=== PATIENT | female | born 1990 | race Asian ===

== ENCOUNTER 2020-01-08 21:19 | Emergency (ER) | payer OTHER ==
[2020-01-08 21:55] LABS: Urine Appearance Cloudy; Urine Bilirubin Negative (Negative); Urine Blood Negative (Negative); Urine Color Yellow; Urine Glucose Negative (Negative); Urine Ketones Negative (Negative); Urine Nitrite Negative (Negative); Urine Protein Negative (Negative); Urine Specific Gravity 1.012 (1.010-1.030); Urine Urobilinogen Negative (Negative)
[2020-01-08 22:10] LABS: Urine Bacteria Absent (Absent); Urine Red Blood Cell 1+(3-5/hpf) (Absent); Urine Squamous Epithelial Cell Present (Absent); Urine White Blood Cell 2+(11-20/hpf) (Absent)
[2020-01-08] MEDS ORDERED: NS 0.9% 1000 ML** 1,000 ML IV ONE (22:22)
--- NOTE | 2020-01-08 22:39 | ED ---
Abdominal Pain/Female - HPI Summary HPI Summary: 29 year old F who is 34 weeks arriving via private car with male director treasurer complains of constant left sided back pain radiating to left side of back starting today 01/08/2020. A0. Patient reports vomiting x2 and headache today. She states she has been able to drink fluids. Patient denies fever, vaginal discharge, vaginal bleeding, dysuria. Patient states she had similar symptoms 2 days ago with diarrhea, and felt better yesterday, but symptoms returned today. No diarrhea today. She endorses movement. Symptoms rated 7 /10 in severity. Symptoms aggravated by nothing. Symptoms alleviated by nothing. Medications reviewed. Takes folic acid and Flonase. 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 No hx tobacco, drugs, alcohol. FHx breast cancer mother, blood clot in spine father. - History of Current Complaint Chief Complaint: EDAbdPain Stated Complaint: 34 WKS PREG/BACK AND ABD PAIN/VOMITING PER PT Time Seen by Provider: 01/08/20 22:22 Hx Obtained From: Patient Hx Last Menstrual Period: 34 weeks Onset/Duration: Lasting Hours, Still Present Timing: Constant Severity Currently: Moderate Pain Intensity: 7 Pain Scale Used: 0-10 Numeric Location: Discrete At: LUQ, Discrete At: LLQ Radiates: Yes Radiates to: Back - left Aggravating Factor(s): Nothing Alleviating Factor(s): Nothing Associated Signs and Symptoms: Positive: Negative - diarrhea, fever, vaginal discharge, vaginal bleeding, dysuria, Vomiting, Other: - headache Allergies/Adverse Reactions: Allergies Allergy/AdvReac Type Severity Reaction Status Date / Time No Known Allergies Allergy Verified 01/08/20 22:06 Home Medications: Home Medications Flonase NASAL SPRAY 50MCG* 2 spray INH DAILY 01/08/20 [History Confirmed ] Folic Acid 400 mcg PO DAILY 01/08/20 [History Confirmed 01/08/20] PMH/Surg Hx/FS Hx/Imm Hx Endocrine/Hematology History: Denies: Hx Diabetes Cardiovascular History: Denies: Hx Hypertension Sensory History: Reports: Hx Contacts or Glasses Opthamlomology History: Reports: Hx Contacts or Glasses - Surgical History Surgery Procedure, Year, and Place: surgery after spleen rupture s/p trauma more than 10 years ago as 2019 - Immunization History Date of Influenza Vaccine: Fall 2018 Infectious Disease History: No Infectious Disease History: Denies: Traveled Outside the [place] in Last 30 Days - Family History Family History: breast cancer mother. blood clot in spine father - Social History Alcohol Use: None Hx Substance Use: No Substance Use Type: Reports: None Hx Tobacco Use: No Smoking Status (MU): Never Smoked Tobacco Review of Systems - ROS Summary Review of Systems Summary: Home Medications Medication Instructions Recorded Confirmed Type Flonase NASAL SPRAY 50MCG* 2 spray INH DAILY 01/08/20 01/08/20 History Folic Acid 400 mcg PO DAILY 01/08/20 01/08/20 History Negative: Fever Positive: Abdominal Pain, Vomiting Genitourinary: Negative - vaginal bleeding Negative: dysuria, discharge Positive: Headache All Other Systems Reviewed And Are Negative: Yes Physical Exam - Summary Physical Exam Summary: General: Well-developed, Well-nourished FEMALE. No acute distress. HEENT: Normocephalic, Atraumatic. Eyes: Conjuctiva normal, PERRL. Oropharynx: Clear, mucous membranes moist, (-) exudates. Neck: Soft, FROM, (-) lymphadenopathy, (-) thyromegaly, (-) JVD. Cardiovascular: Normal sinus rhythm, (-) murmur. Lungs: Clear to auscultation bilaterally (-) wheezes, (-) rales, (-) rhonchi. Abdomen: Soft, non-tender, non-distended, (-) organomegaly, normal bowel sounds. The uterus is 2-cm before the xiphoid. Back: (-) CVA tenderness Extremities: No edema. Skin: Warm, dry, (-) rash. Neuro: Alert and oriented x3, moves all extremities equally. No ataxia. No gait disturbance. No sensory deficit. Normal strength, normal sensation. Psychiatric: Mood normal, affect normal. Triage Information Reviewed: Yes Vital Signs On Initial Exam: Initial Vitals Temp Pulse Resp BP Pulse Ox 98.1 F 86 18 122/73 98 01/08/20 21:22 01/08/20 21:22 01/08/20 21:22 01/08/20 21:22 01/08/20 21:22 Vital Signs Reviewed: Yes Procedures - Sedation Patient Received Moderate/Deep Sedation with Procedure: No Diagnostics - Vital Signs Vital Signs Temp Pulse Resp BP Pulse Ox 01/08/20 22:09 87 116/70 98 01/08/20 22:08 84 98 01/08/20 21:22 98.1 F 86 18 122/73 98 - Laboratory Lab Results: Lab Results 01/08/20 Range/Units 21:44 Urine Color Yellow Urine Appearance Cloudy Urine pH 7.0 (5-9) Ur Specific [place] 1.012 (1.010-1.030) Urine Protein Negative (Negative) Urine Ketones Negative (Negative) Urine Blood Negative (Negative) Urine Nitrate Negative (Negative) Urine Bilirubin Negative (Negative) Urine Urobilinogen Negative (Negative) Ur Leukocyte Esterase 2+ A (Negative) Urine WBC (Auto) 2+(11-20/hpf) A (Absent) Urine RBC (Auto) 1+(3-5/hpf) A (Absent) Ur Squamous Epith Cells Present A (Absent) Urine Bacteria Absent (Absent) Urine Glucose Negative (Negative) Result Diagrams: 01/08/20 22:44 01/08/20 22:44 Lab Statement: Any lab studies that have been ordered have been reviewed, and results considered in the medical decision making process. Re-Evaluation - Re-Evaluation First Eval Re-Evaluation Time: 00:21 Comment: OB nurse reports monitoring findings Second Eval Re-Evaluation Time: 00:27 Change: Improved Comment: I have discussed results with the patient and symptoms have resolved. Discussed symptoms that warrant immediate return to ED. Abdominal Pain Fem Course/Dx - Course Course Of Treatment: 29-year-old female, presents at 34+ weeks gestation with abdominal pain. She states she has left-sided abdominal pain and left back pain. Has not taken anything for it. Also describes vomiting twice today and a headache. She has been able to keep fluids down. She denies any fevers or chills. Said she had diarrhea 2 days ago. Thought she was feeling better yesterday. She states the pain is constant and not coming and going like contractions. Denies vaginal discharge or bleeding. patient states baby is moving well. physical exam the uterus is soft. Appropriate size for gestation. workup demonstrates a slightly elevated white count and decreased hemoglobin. Slightly decreased platelets. Urine has white cells but also has epithelial cells and no bacteria. if needed, treatment will be initiated after positive culture. heart monitoring was done. Patient had mild irregular contractions which were normal and consistent with her symptoms. Patient's symptoms consistent with gastroenteritis. as rest, since of clear fluids and to advance slowly as tolerated. Tylenol as needed. Follow-up with URINALYSIS TECHNICIAN. Follow up sooner for any worsening symptoms. - Diagnoses Provider Diagnoses: Gastroenteritis, , incidental Discharge ED - Sign-Out/Discharge Documenting (check all that apply): Patient Departure - Discharge Plan Condition: Stable Disposition: HOME Patient Education Materials: Gastroenteritis (ED) Referrals: [facility] [Outside] - 3 Days Additional Instructions: Follow up with [facility] in 3 days. Return to the Emergency Department for changing or worsening symptoms. - Billing Disposition and Condition Condition: STABLE Disposition: Home - Attestation Statements Document Initiated by Scribe: Yes Documenting Scribe: Gema Sanchez Provider For Whom Tamara is Documenting (Include Credential): Jonelle Anthony MD Scribe Attestation: Gema Albrecht, scribed for Jonelle Anthony MD on 01/09/20 at 0141. Scribe Documentation Reviewed: Yes Provider Attestation: The documentation as recorded by the Gema khalil accurately reflects the service I personally performed and the decisions made by Jonelle loya MD Status of Scribe Document: Viewed
[2020-01-08 22:57] LABS: ABS Lymphocytes 1.7 10^3/ul (1.0-4.8); ABS Monocytes 1.4 10^3/ul (0-0.8); ABS Neutrophils 13.5 10^3/ul (1.5-7.7); Eosinophil % 0.1 %; Hematocrit 33 % (35-47); Hemoglobin 11.1 g/dL (12.0-16.0); Mean Corpuscular HGB Conc 34 g/dL (31-36); Mean Corpuscular Hemoglobin 29 pg (27-31); Mean Corpuscular Volume 85 fL (80-97); Mean Platelet Volume 11.4 fL (7.4-10.4); Platelet Count 124 10^3/uL (150-450); Red Blood Count 3.82 10^6 /uL (3.70-4.87); Red Cell Distribution Width 15 % (10-15); White Blood Count 16.6 10^3/uL (3.5-10.8)
[2020-01-08 23:02] LABS: INR 0.97 (0.82-1.09)
[2020-01-08 23:12] LABS: Albumin 3.4 g/dL (3.2-5.2); Albumin/Globulin Ratio 1.1 (1-3); BUN/Creatinine Ratio 13.2 (8-20); Calcium 8.2 mg/dL (8.6-10.3); EGFR African American 89.1 (>60); EGFR Non-African American 73.6 (>60); Globulin 3.1 g/dL (2-4); Total Bilirubin 0.4 mg/dL (0.2-1.0); Total Protein 6.5 g/dL (6.4-8.9)
[2020-01-09 00:54] VITALS: BP 94/68
== END 2020-01-09 00:45 | disposition home or self-care (01) ==
LOC: ED 21:19
DX: O26.893 Other specified pregnancy related conditions, third trimester (principal); K52.9 Noninfective gastroenteritis and colitis, unspecified; R51 Headache; M54.9 Dorsalgia, unspecified; Z3A.34 34 weeks gestation of pregnancy
CPT/HCPCS: 36415; 80053; 81003; 81015; 83605; 85025; 85610; 87086; 96360; 99283

== ENCOUNTER 2020-02-05 17:07 | Inpatient (IN) | payer OTHER ==
[2020-02-05] MEDS ORDERED: Buffered Lidocaine 1% SYRIN* 1 ML/SYRINGE INTRADERM ONE (17:44)
[2020-02-05] MEDS ORDERED: Lactated Ringers 1000 ML Bag* 1,000 ML IV ONE (17:44)
--- NOTE | 2020-02-05 17:54 | HP ---
General Information - Reason for Visit Contractions - General Information Maternal Age: 29 Grav: 1 Para: 0 SAB: 0 IEA: 0 Estimated Due Date: 02/14/20 Determined By: LMP Gestational Age in Weeks/Days: 38 5/ Maternal Blood Type and Rh: O Positive - Results this Serology/RPR Result: Non-Reactive Rubella Result: Immune HBsAg Result: Negative HIV Result: Negative GBS Culture Result: Positive Past Medical History Delivery History: See Records Delivery History Comment: no prior deliveries Pertinent Past Medical History: See Records Past Medical History Comment: Thrombocytopenia, hypotension, eczema Pertinent Past Surgical History: See Records Past Surgical History Comment: Partial splenectomy - 2006 Pertinent Family History: See Records Family History Comment: Father: Spinal arteriovenous malformation Mother: Breast cancer - in remission, arthritis - Antepartal Records Antepartal Records: Reviewed, Complicated by: - hyperemesis gravidarum , thrombocytopenia (Platelets 124 at 28 weeks) Review of Systems Constitutional: Uncomfortable CV Complaint: No Respiratory: Shortness of Breath: No Gastrointestinal: Normal Bowel Movement, Nausea Genitourinary: No Dysuria, No Leaking Fluid Musculoskeletal: No Epigastric Pain, Back Pain, Contractions Neurological: No Headache, No Visual Changes Movement: Normal Exam Allergies/Adverse Reactions: Allergies No Known Allergies Allergy (Verified 02/05/20 17:27) B/P: 112/80, P: 86, R: 18, T: 98.4 - Measurements Height: 5 ft 5 in Weight: 167 lb Weight in lbs: 167.969140 Body Mass Index (BMI): 27.8 Pre- Weight: 131 lb Weight Gained This : 36 lbs and 0 ozs - Exam Breast: Breast Exam Deferred CVA: No CVA Tenderness Extremities: No Edema Heart: Normal Rhythm/Heart Sounds HEENT: No Significant Findings Lungs: Clear Bilaterally Reflexes: DTR 2+ Thyroid: No Thyromegaly - Abdominal Exam Abdomen Exam: Non-Tender, Fundal Height Consistent with Dates - Ultrasound/Biophysical Profile Ultrasound Status: Not Done Targeted Exam Findings See L&D Outpatient Visit Provider Note for Findings: N/A Estimated Weight: 6.5 lb by sherrie's Cervical Exam: 4cm Effacement: 90% Station: -1 Presenting Part: Vertex Membrane Status: Intact Bleeding/Discharge: Bloody Show EFM Findings - External Monitor Findings Baseline Heart Rate: 135 External Monitor Findings: Accelerations Present, No Pattern of Variable or Late Decelerations, Variability Moderate, Baseline Stable Contractions: Regular, Moderate, 45-90 Seconds Contraction Frequency: 3-5 min Assessment/Plan - Obstetrical Risk Factors Obstetrical Risk Factors: GBS Positive - Plan Plan: Admit - Anticipate Vaginal Delivery - Date/Time of Admission Date of Admission: 02/05/20 Time of Admission: 17:40
[2020-02-05] MEDS ORDERED: Lactated Ringers 1000 ML Bag* 1,000 ML IV SCH ×2 (18:00→20:00)
[2020-02-05 18:26] LABS: ABS Eosinophils 0.1 10^3/ul (0-0.6); ABS Lymphocytes 2.1 10^3/ul (1.0-4.8); ABS Monocytes 1.2 10^3/ul (0-0.8); ABS Neutrophils 13.4 10^3/ul (1.5-7.7); Eosinophil % 0.4 %; Hematocrit 35 % (35-47); Hemoglobin 11.6 g/dL (12.0-16.0); Lymphocyte % 12.7 %; Mean Corpuscular HGB Conc 33 g/dL (31-36); Mean Corpuscular Hemoglobin 28 pg (27-31); Mean Corpuscular Volume 83 fL (80-97); Mean Platelet Volume 10.8 fL (7.4-10.4); Platelet Count 132 10^3/uL (150-450); Red Blood Count 4.18 10^6 /uL (3.70-4.87); Red Cell Distribution Width 16 % (10-15); White Blood Count 16.8 10^3/uL (3.5-10.8)
[2020-02-05] MEDS ORDERED: Penicillin G Potassium IV* 5,000,000 UNITS in NS 0.9% 100 ML* 100 ML IVPB ONE (18:30)
--- NOTE | 2020-02-05 19:18 | PN ---
Progress Note - Progress Note Date of Service: 02/05/20 Note: Quick note: Laura requesting epidural. last exam, first dose PCN for GBS prophylaxis done infusing. Dr. Roach called and will be in shortly.
[2020-02-05] MEDS ORDERED: OBEPIDURAL* 250 ML EPIDURAL ONE (19:29)
[2020-02-05] MEDS ORDERED: Sodium Citrate/Citric Acid* 15 ML UDC PO PRN (19:37)
[2020-02-05] MEDS ORDERED: EPHEDrine (Pressors)* 50 MG/ML VIAL IV PUSH PRN (19:37)
[2020-02-05] MEDS ORDERED: Famotidine TAB* 20 MG PO PRN (19:37)
[2020-02-05] MEDS ORDERED: Phenylephrine 40 MCG/ML SYRINGE IV PUSH PRN (19:37)
[2020-02-05] MEDS ORDERED: OBEPIDURAL* 250 ML EPIDURAL SCH (20:00)
[2020-02-05 21:31] LABS: Urine Benzodiazepine Screen None Detected (None Detect); Urine Opiates Screen None Detected (None Detect)
[2020-02-05] MEDS: Penicillin G Potassium IV* 3,000,000 UNITS in NS 0.9% 100 ML* 100 ML IVPB SCH (22:25)
[2020-02-06] MEDS: Penicillin G Potassium IV* 3,000,000 UNITS in NS 0.9% 100 ML* 100 ML IVPB SCH ×3 (02:20→11:21)
--- NOTE | 2020-02-06 06:41 | PN ---
Progress Note - Progress Note Date of Service: 02/06/20 Note: S: Has been sleeping comfortably. O: B/P: 119/66, P: 91, R: 16, T: 98.9 FHR: baseline 135, moderate variability, + accelerations, no decelerations UCs: q 5 min VE: 10/100/+1. AROM to meconium stained fluid A: IUP at 38 6/7 weeks category I FHR, no evidence of metabolic acidemia PCN for GBS prophylaxis x 4 doses P: Repositioned to throne to encourage urge to push. Consider pitocin augmentation if no urge within 30-60 min Anticipate SVB
[2020-02-06] MEDS ORDERED: Oxytocin in LR* 20 UNITS/1,000 ML BAG IVPB ONE (07:06)
[2020-02-06] MEDS ORDERED: Acetaminophen TAB* 325 MG PO PRN (10:44)
[2020-02-06] MEDS ORDERED: Glycerin ADULT SUPP PR PRN (10:44)
[2020-02-06] MEDS ORDERED: Lactated Ringers 1000 ML Bag* 1,000 ML IV SCH (11:00)
[2020-02-06] MEDS ORDERED: Oxytocin in LR* 20 UNITS/1,000 ML BAG IVPB SCH (11:00)
[2020-02-06] MEDS: Witch Hazel PAD* JAR TOPICAL PRN (12:24)
[2020-02-06] MEDS: Dibucaine 1% 28.35 GM TUBE PR PRN (12:24)
[2020-02-06] MEDS ORDERED: Ammonia Inhalant* 1 EA AMP ONE ×2 (12:34→12:40)
[2020-02-06] MEDS: Ibuprofen TAB* 600 MG PO PRN ×2 (12:41→23:01)
--- NOTE | 2020-02-06 14:15 | PROCNOTE ---
[facility] OB: Delivery Note - Delivery A Date of : 02/06/20 Time of : 09:43 [place] Sex: Male Weight at : 3.58 kg Score 1 Minute: 9 Score 5 Minutes: 9 Gestational Age in Weeks and Days at Delivery: 38 Weeks and 6 Days Delivery Method: Spontaneous Vaginal Labor: Spontaneous Did Patient attempt ?: N/A, No Previous Amniotic Fluid: Meconium Estimated Blood Loss: 300 Anesthesia/Analgesia: CEI for Labor Delivered By: Leann Summers Nursery Level of Nursery: Regular/Bedside - Perineum Perineal Injury: Perineal Laceration, 2nd Degree Perineal Repair: By Delivering Practioner - Events Delivery Events of Note: Pitocin Only After Delivery, Full Course of Antibiotics Delivery Events of Note Comment: thick meconium; DIABETES NURSE in room for delivery - Additional Delivery Notes Additional Delivery Notes: Pt admitted to Labor and Delivery in spontaneous labor. Pt initially experienced SROM to clear fluid; however when forebag ruptured thick meconium was present. Pt eventually requested and received an epidural for pain relief with good effect. Pt made steady progress to full dilation and was coached in pushing. Pt pushed with good effort and steady descent. DIABETES NURSE at bedside for delivery due to meconium. Pt eventually brought to and was coached through slow, controlled delivery of the head. Shoulders tight, pt placed in McRobert's position and they released with gentle traction. to maternal abdomen with vigorous cry, dried and stimulated. After cord pulsation ceased, cord clamped x2 and cut by infant's father. Placenta soon delivered, spontaneous and zeenat. Meconium-staining and marginal cord insertion noted. Pt initially had large gush of blood with placenta, Pitocin started at 250 cc/ hr and fundal massage performed, bleeding minimal after that. Examination of the perineum revealed second degree laceration. Repaired using absorbable suture resulting in good hemostasis and tissue approximation. Mother and stable at this time, anticipate normal course.
[2020-02-06] MEDS: Docusate CAP* 100 MG PO SCH ×2 (15:36→21:24)
[2020-02-06 15:43] LABS: Hematocrit 22 % (35-47); Hemoglobin 7.2 g/dL (12.0-16.0); Mean Corpuscular HGB Conc 33 g/dL (31-36); Mean Corpuscular Hemoglobin 27 pg (27-31); Mean Corpuscular Volume 84 fL (80-97); Mean Platelet Volume 11.1 fL (7.4-10.4); Platelet Count 115 10^3/uL (150-450); Red Blood Count 2.63 10^6 /uL (3.70-4.87); Red Cell Distribution Width 16 % (10-15); White Blood Count 24.2 10^3/uL (3.5-10.8)
--- NOTE | 2020-02-06 16:07 | PN ---
Progress Note - Progress Note Date of Service: 02/06/20 Note: Pt has not been able to get up out of bed following delivery without becoming very dizzy or faint. Hernandez catheter placed and CBC ordered which showed Hgb/ Hct down to 7.2/ 22 from 11.6/ 35 last night. Fundus firm, scant rubra lochia. Examination of the perineum showed labia majora edematous bilaterally but no bruising or evidence of hematoma. BP 97/57, pulse 77, temp 98.4. Consulted with Dr. Blankenship. Will repeat CBC in 4 hours, place urometer on Hernandez catheter, check VS hourly.
[2020-02-06 16:09] LABS: ABS Lymphocytes 1.6 10^3/ul (1.0-4.8); ABS Monocytes 1.6 10^3/ul (0-0.8); ABS Neutrophils 20.9 10^3/ul (1.5-7.7); Eosinophil % 0.1 %; Lymphocyte % 6.7 %
[2020-02-06] MEDS ORDERED: Lidocaine 1% INJ* 10 MG/ML 30 ML SDV ONE (18:25)
[2020-02-06 20:27] LABS: Hematocrit 20 % (35-47); Hemoglobin 6.6 g/dL (12.0-16.0); Mean Corpuscular HGB Conc 33 g/dL (31-36); Mean Corpuscular Hemoglobin 28 pg (27-31); Mean Corpuscular Volume 84 fL (80-97); Mean Platelet Volume 11.4 fL (7.4-10.4); Platelet Count 108 10^3/uL (150-450); Red Cell Distribution Width 16 % (10-15); White Blood Count 21.6 10^3/uL (3.5-10.8)
[2020-02-06 20:50] LABS: ABS Lymphocytes 2.1 10^3/ul (1.0-4.8); ABS Monocytes 1.6 10^3/ul (0-0.8); ABS Neutrophils 17.9 10^3/ul (1.5-7.7); Eosinophil % 0.1 %; Lymphocyte % 9.7 %
--- NOTE | 2020-02-06 21:23 | PN ---
Progress Note - Progress Note Date of Service: 02/06/20 SOAP: Subjective: Pt feeling well. Has still not been able to get up out of bed. Denies dizziness , light-headedness while at rest. at bedside. Objective: Hgb/ Hct 6.6/20 after 4 hours from previous level of 7.2/ Platelet count 108 (from 115 previously) BP: 110/56, pulse:90, temp: 98.5 Fundus firm at 1cm below umbilicus Small rubra lochia Back with no bruising or discoloration Labia majora very edematous bilaterally, no bruising or discoloration Pt reports tenderness but no pain Assessment: 29 year old at 12 hours post over second degree laceration. Experiencing acute anemia likely due to greater than estimated blood loss during delivery. Vital signs stable, but pt experiencing dizziness/ faintness when out of bed. Perineum edematous but as it is bilateral without bruising or significant pain, unlikely hematoma. Plan: Consulted with Dr. Blankenship. Recommend to pt that we transfuse 2 units PRBCs. Will recheck CBC 4 hours after transfusion completed. Pt in agreement with plan. Will keep Hernandez with urometer in until morning at least, and not remove until H/ H stable and pt able to ambulate without difficulty.
[2020-02-06] MEDS: Ferrous Gluconate TAB* 324 MG TAB PO SCH (21:24)
[2020-02-07] MEDS ORDERED: Ammonia Inhalant* 1 EA AMP ONE (04:44)
[2020-02-07 08:16] LABS: Hematocrit 27 % (35-47); Mean Corpuscular HGB Conc 34 g/dL (31-36); Mean Corpuscular Hemoglobin 28 pg (27-31); Mean Corpuscular Volume 84 fL (80-97); Red Blood Count 3.17 10^6 /uL (3.70-4.87); Red Cell Distribution Width 15 % (10-15); White Blood Count 18.6 10^3/uL (3.5-10.8)
[2020-02-07 08:39] LABS: ABS Basophils 0.1 10^3/ul (0-0.2); ABS Eosinophils 0.1 10^3/ul (0-0.6); ABS Lymphocytes 2.7 10^3/ul (1.0-4.8); ABS Monocytes 1.4 10^3/ul (0-0.8); ABS Neutrophils 14.4 10^3/ul (1.5-7.7); Eosinophil % 0.4 %; Lymphocyte % 14.7 %; Mean Platelet Volume 10.5 fL (7.4-10.4); Platelet Count 98 10^3/uL (150-450)
[2020-02-07] MEDS: Docusate CAP* 100 MG PO SCH ×3 (08:49→20:01)
[2020-02-07] MEDS: Ferrous Gluconate TAB* 324 MG TAB PO SCH ×2 (10:01→20:02)
[2020-02-07] MEDS: Ibuprofen TAB* 600 MG PO PRN (20:02)
[2020-02-07] MEDS: Dibucaine 1% 28.35 GM TUBE PR PRN (20:02)
[2020-02-07] MEDS: Witch Hazel PAD* JAR TOPICAL PRN (20:02)
[2020-02-08] MEDS: Ibuprofen TAB* 600 MG PO PRN ×2 (03:47→10:00)
[2020-02-08 07:04] LABS: Hematocrit 26 % (35-47); Hemoglobin 8.7 g/dL (12.0-16.0); Mean Corpuscular HGB Conc 34 g/dL (31-36); Mean Corpuscular Hemoglobin 28 pg (27-31); Mean Corpuscular Volume 85 fL (80-97); Mean Platelet Volume 10.7 fL (7.4-10.4); Platelet Count 114 10^3/uL (150-450); Red Blood Count 3.08 10^6 /uL (3.70-4.87); Red Cell Distribution Width 16 % (10-15); White Blood Count 16.7 10^3/uL (3.5-10.8)
[2020-02-08 08:13] LABS: ABS Eosinophils 0.2 10^3/ul (0-0.6); ABS Lymphocytes 3.3 10^3/ul (1.0-4.8); ABS Neutrophils 12.1 10^3/ul (1.5-7.7); Eosinophil % 1.4 %; Lymphocyte % 19.6 %
[2020-02-08] MEDS: Dibucaine 1% 28.35 GM TUBE PR PRN (08:57)
[2020-02-08] MEDS: Witch Hazel PAD* JAR TOPICAL PRN (08:57)
[2020-02-08] MEDS: Ferrous Gluconate TAB* 324 MG TAB PO SCH (08:57)
[2020-02-08] MEDS: Docusate CAP* 100 MG PO SCH (08:57)
[2020-02-08 09:08] VITALS: BP 108/68
== END 2020-02-08 13:00 | disposition home or self-care (01) | DRG 806 ==
LOC: MCHOBOUT 17:07 → MCHOB 17:41
PROVIDERS: ADMIT Midwife; ATTEND Midwife
PROC: 10E0XZZ Delivery of Products of Conception, External Approach (ICD-10-PCS; principal; 2020-02-06)
PROC: 0KQM0ZZ Repair Perineum Muscle, Open Approach (ICD-10-PCS; 2020-02-06)
PROC: 10907ZC Drainage of Amniotic Fluid, Therapeutic from Products of Conception, Via Natural or Artificial Opening (ICD-10-PCS; 2020-02-06)
PROC: 30233N1 Transfusion of Nonautologous Red Blood Cells into Peripheral Vein, Percutaneous Approach (ICD-10-PCS; 2020-02-06)
DX: O99.824 Streptococcus B carrier state complicating childbirth (principal); D62 Acute posthemorrhagic anemia; Z37.0 Single live birth; O77.0 Labor and delivery complicated by meconium in amniotic fluid; O99.12 Other diseases of the blood and blood-forming organs and certain disorders involving the immune mechanism complicating childbirth; D69.6 Thrombocytopenia, unspecified; O70.1 Second degree perineal laceration during delivery; O90.81 Anemia of the puerperium; O72.1 Other immediate postpartum hemorrhage; Z3A.38 38 weeks gestation of pregnancy
CPT/HCPCS: 36415; 80307; 85025; 85060; 86850; 86900; 86901; 86922; A9270-GY; G0480; J2540; P9040

== ENCOUNTER 2021-12-05 05:55 | Inpatient (IN) ==
[2021-12-05] MEDS ORDERED: Lactated Ringers 1000 ml BAG 1,000 ML IV SCH ×2 (06:00→11:00)
[2021-12-05] MEDS ORDERED: Buffered Lidocaine 1% SYRIN 1 ml INTRADERM ONE (06:00)
[2021-12-05] MEDS ORDERED: ceFOXitin 2 GM IVPREMIX 2 GM/50 ML BAG ONE (07:30)
[2021-12-05 07:56] LABS: Hematocrit 38 % (35-47); Hemoglobin 12.4 g/dL (12.0-16.0); Mean Corpuscular HGB Conc 33 g/dL (31-36); Mean Corpuscular Hemoglobin 29 pg (27-31); Mean Corpuscular Volume 88 fL (80-97); Mean Platelet Volume 11.5 fL (7.4-10.4); Platelet Count 108 10^3/uL (150-450); Red Blood Count 4.31 10^6 /uL (3.70-4.87); Red Cell Distribution Width 15 % (10-15); White Blood Count 11.8 10^3/uL (3.5-10.8)
[2021-12-05] MEDS ORDERED: fentaNYL 100 mcg/2 ml 50 MCG/ML VIAL ONE (08:22)
[2021-12-05] MEDS ORDERED: Morphine PF AMP (0.5MG/ML) 5 MG/10 ML AMP ONE (08:22)
[2021-12-05 08:43] LABS: Urine Benzodiazepine Screen None Detected (None Detect); Urine Cannabinoids Screen None Detected (None Detect); Urine Opiates Screen None Detected (None Detect)
[2021-12-05] MEDS ORDERED: EPHEDrine (Pressors) 50 MG/ML VIAL ONE (08:53)
[2021-12-05] MEDS ORDERED: Phenylephrine 40 mcg/mL 10mL (400mcg) SYRINGE ONE ×2 (08:53→09:12)
[2021-12-05] MEDS ORDERED: Oxytocin 10 UNITS/ML 1 ML VIAL ONE (09:09)
[2021-12-05] MEDS ORDERED: Glycerin ADULT 2.4 gm SUPP PR PRN (10:25)
[2021-12-05] MEDS ORDERED: Witch Hazel PAD JAR TOPICAL PRN (10:25)
[2021-12-05] MEDS ORDERED: Ondansetron 4 mg VIAL 2 MG/ML 2 ml VIAL IV PRN (10:31)
[2021-12-05] MEDS ORDERED: Naloxone 0.4 mg VIAL 0.4 mg/ml 1 ml VIAL IV PRN (10:31)
[2021-12-05] MEDS ORDERED: diPHENhydraMINE IV 50 MG/ML 1 ml VIAL (BENADRYL) IV PRN (10:31)
[2021-12-05 11:37] LABS: Urine Appearance Clear; Urine Bilirubin Negative (Negative); Urine Blood 3+ (Negative); Urine Color Straw; Urine Glucose Negative (Negative); Urine Ketones Negative (Negative); Urine Nitrite Negative (Negative); Urine Protein Negative (Negative); Urine Specific Gravity 1.004 (1.002-1.030); Urine Urobilinogen Negative (Negative)
[2021-12-05 11:43] LABS: Urine Bacteria Absent (Absent); Urine Red Blood Cell Trace(0-2/hpf) (Absent); Urine Squamous Epithelial Cell Present (Absent); Urine White Blood Cell Absent (Absent)
[2021-12-06 07:02] LABS: Hematocrit 31 % (35-47); Hemoglobin 10.4 g/dL (12.0-16.0); Mean Corpuscular HGB Conc 34 g/dL (31-36); Mean Corpuscular Hemoglobin 30 pg (27-31); Mean Corpuscular Volume 88 fL (80-97); Red Blood Count 3.53 10^6 /uL (3.70-4.87); Red Cell Distribution Width 15 % (10-15); White Blood Count 12.6 10^3/uL (3.5-10.8)
[2021-12-06 07:19] LABS: ABS Eosinophils 0.1 10^3/ul (0-0.6); ABS Lymphocytes 1.7 10^3/ul (1.0-4.8); ABS Monocytes 0.9 10^3/ul (0-0.8); ABS Neutrophils 9.9 10^3/ul (1.5-7.7); Eosinophil % 0.4 %; Lymphocyte % 13.4 %; Platelet Count 92 10^3/uL (150-450)
[2021-12-06] MEDS ORDERED: Ammonia Inhalant 1 EA AMP ONE (19:46)
[2021-12-08 08:43] VITALS: BP 102/62
== END 2021-12-08 13:13 | disposition home or self-care (01) | DRG 788 ==
LOC: MCHOB 05:55
PROVIDERS: ADMIT Obstetrics & Gynecology; ATTEND Obstetrics & Gynecology